=== PATIENT | male | born 1985 | race Caucasian/White ===

== ENCOUNTER 2017-02-08 20:18 | Emergency (ER) | payer OTHER ==
--- NOTE | 2017-02-08 21:02 | ED CLINICAL REPORT ---
Clinical Report - Physicians/Mid Levels [facility] [address] [place] [address] 02/08/2017 20:19 Patient: MAILE GUNN Time Seen: 21:43 Edison 2016. Arrived- By private vehicle. Historian- patient. HISTORY OF PRESENT ILLNESS Chief Complaint: BACK PAIN. It is described as being mild and in the area of the lower lumbar spine. The quality is noted to be "pain". Onset was just prior to arrival and it is still present. No bladder dysfunction or bowel dysfunction. Additional history - patient was using a hand pump, to inflate a floating device, and a flex tobacco position, when he attempted to stand up, patient developed low back pain, with now with pain radiating to his bilateral lower extremities, into his side. Patient denies any urgency or frequency. Patient notes the possibility of an injury. REVIEW OF SYSTEMS No fever, eye irritation, difficulty with urination, hematuria or sore throat. No nausea or diarrhea. All systems otherwise negative, except as recorded above. SOCIAL HISTORY Never smoker. Alcohol use. No drug use. ADDITIONAL NOTES The nursing notes have been reviewed. PHYSICAL EXAM Vital Signs: 02/08/2017 20:31 BP: 133/86. HR: 75. RR: 15. O2 saturation: 96%. Temp: 97.7 F. Pain level now: 9/10. Appearance: Alert. CVS: Heart sounds normal. Pulses normal. Respiratory: No respiratory distress. Abdomen: No visible injury. Soft. Bowel sounds normal. No abdominal tenderness. Back: Soft tissue tenderness. Neuro: Oriented X 3. Mood/affect normal. No motor deficit. No sensory deficit. No sensory deficit. Straight leg raising: negative on the right. Reflex exam: right patellar 3+ and left patellar 3+. Normal gait. PROGRESS AND PROCEDURES Course of Care: There are no risks for spinal epidural abscess or hematoma as patient is without any risk factors such as IVDA or evidence of active infection, no midline tenderness to percussion. Hence I do not feel emergent imaging with an MRI is indicated. However I did discuss with the patient that if these symptoms develop, or if the pain does not resolve an MRI may need to be done outpatient, or in the ED if symptoms worsen acutely or new onset of the above mentioned symptoms develop. Patient is stable. Symptoms better. Patient/family counseled. Differential Diagnosis: I considered Musculo-skeletal strain, contusion, retroperitoneal hematoma, disk protrusion, vertebral fracture, transverse-process fracture, rib fracture, facet syndrome, sacroiliac joint strain, sciatica, renal injury, splenic injury, pancreatic injury and osteoarthritis as a possible cause of back pain in this patient. This is a partial list of diagnoses considered. Disposition: Discharged. CLINICAL IMPRESSION Acute lumbar strain. INSTRUCTIONS Apply ice. Limit lifting. Do not work for four days. Prescription Medications: Soma 350 mg: Take 1 orally every 6 hours as needed for muscle spasm. Dispense twenty (20). No refills. Substitution is permissible. Percocet 5 mg/325 mg: take 1 tablet orally every 6 hours as needed for pain. Dispense twelve (12). No refill. Substitution is permissible. OTC Medications: Motrin IB 200 mg (available over the counter): take 4 orally every 8 hours as needed for pain Follow-up: Follow up with your doctor in four days. (Electronically signed by Kusum Bo P.A.-C 02/08/2017 21:44)
--- NOTE | 2017-02-08 21:02 | ED NURSING NOTES ---
Clinical Report - Nurses [facility] [address] [place] [address] 02/08/2017 20:19 Patient: MAILE GUNN TRIAGE Triage time 22:30. Acuity: LEVEL 4. Chief Complaint: BACK PAIN. 20:37 02/08/17. Alert. No acute distress. MILIND COMA SCORE: Milind Coma Scale: 15- eyes open spontaneously (4); best verbal response- oriented x 4 (5); best motor response- obeys commands (6). --20:37 Yolanda Grant R.N. 20:31 02/08/17. BP: 133/86. HR: 75. RR: 15. O2 saturation: 96%. Temp: 97.7 F. Pain level now: 04/26. --20:37 Yolanda Grant R.N. Weight: 120.2 kg stated. Height/Length: 77 inches Per Patient. BMI: 31.4. --20:35 Yolanda Grant R.N. Medications None. --20:34 Yolanda Grant R.N. Allergies Penicillin. --20:34 Yolanda Grant R.N. Hydrocodone. Moderate(itching, nausea, rash) PCN. --20:34 Yolanda Grant R.N. Amoxicillin. --20:34 Yolanda Grant R.N. History Arrived by private vehicle. Historian: patient. Accompanied by family. Primary physician (No PCP). This started today. ( Patient reports he was pumping up a paddle board and developed stabbing, shooting pain "in my back and into my hips".). He has had numbness, weakness, tingling, and extremity pain. History of recent trauma- (bending over using a pump). ( Patient states the pain shoots down his leg.). 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 PAST MEDICAL HX: Tetanus status: unknown. Immunizations: up-to-date. SOCIAL HX: Never smoker. Occasional alcohol use. No drug use. FALL RISK ASSESSMENT: Fall risk assessment completed. No fall risk identified. NUTRITIONAL RISK ASSESSMENT: The nutritional risk assessment revealed no deficiencies. FUNCTIONAL ASSESSMENT: Functional assessment: no impairments noted. LEARNING NEEDS ASSESSMENT: The learning needs assessment revealed no barriers. SKIN INTEGRITY ASSESSMENT: Skin integrity risk assessment completed. No skin integrity risk identified. --20:37 Yolanda Grant R.N. PROBLEMS: Hydrocele. Dysuria. Flank Pain. Elevated liver enzymes. Abnormal Test. Dysphagia. Abdominal Pain. Contact Dermatitis. Contusion. Sprain. Acute Pain. --20:34 Yolanda Grant R.N. ADDITIONAL SURGERIES: Left elbow. --20:34 Yolanda Grant R.N. Interventions ID band on patient. To treatment room. --20:37 Yolanda Grant R.N. PHYSICAL ASSESSMENT 20:39 02/08/17. Ambulatory to room. GENERAL / NEURO / PSYCH: Alert. Oriented X 4. Appears in pain. (while walking). RESPIRATORY: Respirations not labored. CVS: Capillary refill less than 2 seconds. GI / : Abdomen soft and nontender. EXTREMITIES: Sensation intact in extremities. ROM of extremities within normal limits. BACK: Limited ROM of the back (due to pain.). ROM of neck and back within normal limits. --20:39 Yolanda Grant R.N. NURSING PROGRESS NOTES 20:39 02/08/17. Two patient identifiers checked. Call light placed in reach. Bed placed in lowest position. Brakes of bed on. Patient ready for evaluation- chart flagged and notification provided. --20:39 Yolanda Grant R.N. 21:02/08/2017 Valium (Diazepam) PO Tablets 2.5 mg given. Allergies verified, confirmed 5 rights and sedative warning given to the patient. --21:27 Yolanda Grant R.N. 21:27 02/08/2017 Percocet (Oxycodone-Acetaminophen) PO 5/325 mg Tablets 1 tab given. Allergies verified, confirmed 5 rights and sedative warning given to the patient. --21:27 Yolanda Grant R.N. DISPOSITION / DISCHARGE 21:31. No learning barriers present. Discharge instructions provided and reviewed with the patient and spouse. Reviewed warnings. Reviewed medication(s). Treatments reviewed. Reviewed referrals. Activity restrictions reviewed. Work note given. Patient and spouse verbalized understanding. Written instructions provided in Icelandic. The patient was discharged home and accompanied by spouse. He left the Emergency Department ambulatory and via private vehicle. Spouse driving. --21:33 Yolanda Grant R.N. 20:31 02/08/17. BP: 133/86. HR: 75. RR: 15. O2 saturation: 96%. Temp: 97.7 F. Pain level now: 04/26. --21:33 Yolanda Grant R.N. Locked/Released at 02/08/2017 23:59 by Yolanda Grant R.N.
--- NOTE | 2017-02-08 21:02 | ED NURSING NOTES ---
Clinical Report - Nurses [facility] [address] [place] [address] 02/08/2017 20:19 Patient: MAILE GUNN TRIAGE Triage time 22:30. Acuity: LEVEL 4. Chief Complaint: BACK PAIN. 20:37 02/08/17. Alert. No acute distress. MILIND COMA SCORE: Milind Coma Scale: 15- eyes open spontaneously (4); best verbal response- oriented x 4 (5); best motor response- obeys commands (6). --20:37 Yolanda Grant R.N. 20:31 02/08/17. BP: 133/86. HR: 75. RR: 15. O2 saturation: 96%. Temp: 97.7 F. Pain level now: 04/26. --20:37 Yolanda Grant R.N. Weight: 120.2 kg stated. Height/Length: 77 inches Per Patient. BMI: 31.4. --20:35 Yolanda Grant R.N. Medications None. --20:34 Yolanda Grant R.N. Allergies Penicillin. --20:34 Yolanda Grant R.N. Hydrocodone. Moderate(itching, nausea, rash) PCN. --20:34 Yolanda Grant R.N. Amoxicillin. --20:34 Yolanda Grant R.N. History Arrived by private vehicle. Historian: patient. Accompanied by family. Primary physician (No PCP). This started today. ( Patient reports he was pumping up a paddle board and developed stabbing, shooting pain "in my back and into my hips".). He has had numbness, weakness, tingling, and extremity pain. History of recent trauma- (bending over using a pump). ( Patient states the pain shoots down his leg.). 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 PAST MEDICAL HX: Tetanus status: unknown. Immunizations: up-to-date. SOCIAL HX: Never smoker. Occasional alcohol use. No drug use. FALL RISK ASSESSMENT: Fall risk assessment completed. No fall risk identified. NUTRITIONAL RISK ASSESSMENT: The nutritional risk assessment revealed no deficiencies. FUNCTIONAL ASSESSMENT: Functional assessment: no impairments noted. LEARNING NEEDS ASSESSMENT: The learning needs assessment revealed no barriers. SKIN INTEGRITY ASSESSMENT: Skin integrity risk assessment completed. No skin integrity risk identified. --20:37 Yolanda Grant R.N. PROBLEMS: Hydrocele. Dysuria. Flank Pain. Elevated liver enzymes. Abnormal Test. Dysphagia. Abdominal Pain. Contact Dermatitis. Contusion. Sprain. Acute Pain. --20:34 Yolanda Grant R.N. ADDITIONAL SURGERIES: Left elbow. --20:34 Yolanda Grant R.N. Interventions ID band on patient. To treatment room. --20:37 Yolanda Grant R.N. PHYSICAL ASSESSMENT 20:39 02/08/17. Ambulatory to room. GENERAL / NEURO / PSYCH: Alert. Oriented X 4. Appears in pain. (while walking). RESPIRATORY: Respirations not labored. CVS: Capillary refill less than 2 seconds. GI / : Abdomen soft and nontender. EXTREMITIES: Sensation intact in extremities. ROM of extremities within normal limits. BACK: Limited ROM of the back (due to pain.). ROM of neck and back within normal limits. --20:39 Yolanda Grant R.N. NURSING PROGRESS NOTES 20:39 02/08/17. Two patient identifiers checked. Call light placed in reach. Bed placed in lowest position. Brakes of bed on. Patient ready for evaluation- chart flagged and notification provided. --20:39 Yolanda Grant R.N. 21:02/08/2017 Valium (Diazepam) PO Tablets 2.5 mg given. Allergies verified, confirmed 5 rights and sedative warning given to the patient. --21:27 Yolanda Grant R.N. 21:27 02/08/2017 Percocet (Oxycodone-Acetaminophen) PO 5/325 mg Tablets 1 tab given. Allergies verified, confirmed 5 rights and sedative warning given to the patient. --21:27 Yolanda Grant R.N. DISPOSITION / DISCHARGE 21:31. No learning barriers present. Discharge instructions provided and reviewed with the patient and spouse. Reviewed warnings. Reviewed medication(s). Treatments reviewed. Reviewed referrals. Activity restrictions reviewed. Work note given. Patient and spouse verbalized understanding. Written instructions provided in Bulgarian. The patient was discharged home and accompanied by spouse. He left the Emergency Department ambulatory and via private vehicle. Spouse driving. --21:33 Yolanda Grant R.N. 20:31 02/08/17. BP: 133/86. HR: 75. RR: 15. O2 saturation: 96%. Temp: 97.7 F. Pain level now: 04/26. --21:33 Yolanda Grant R.N. Locked/Released at 02/08/2017 23:59 by Yolanda Grant R.N.
--- NOTE | 2017-02-08 21:02 | ED ORDER SUMMARY ---
..... Patient: MAILE GUNN OrderSheet [facility] VisitID: [id number] [place] [address] 31y, M Registration Date/Time: 02/08/2017 ORDER SHEET Weight: 120.2 kg (stated) Allergies: Penicillin, Hydrocodone, PCN, Amoxicillin GENERAL ORDERS: MEDICATION ORDERS: Valium PO 2.5 mg (HIGH ALERT MEDICATION, NOW) (20:51 02/08/2017 Shady Pappas) (Ack 20:56 RMarsden R.N.) (21:27 RMarsden R.N.) Percocet PO 5/325 mg (HIGH ALERT MEDICATION, NOW) (20:51 02/08/2017 Shady Pappas) (Ack 20:56 RMarsden R.N.) (21:27 RMarsden R.N.) IV FLUIDS: ORDER SHEET NOTES: [Electronically signed by Kusum Bo P.A.-C (21:44 02/08/2017)] [Electronically signed by Yolanda Grant R.N. (23:59 02/08/2017)] [Electronically locked/signed by Yolanda Grant R.N. (23:59 02/08/2017)]
--- NOTE | 2017-02-08 21:02 | ED ORDER SUMMARY ---
..... Patient: MAILE GUNN OrderSheet [facility] VisitID: [id number] [place] [address] 31y, M Registration Date/Time: 02/08/2017 ORDER SHEET Weight: 120.2 kg (stated) Allergies: Penicillin, Hydrocodone, PCN, Amoxicillin GENERAL ORDERS: MEDICATION ORDERS: Valium PO 2.5 mg (HIGH ALERT MEDICATION, NOW) (20:51 02/08/2017 Shady Pappas) (Ack 20:56 RMarsden R.N.) (21:27 RMarsden R.N.) Percocet PO 5/325 mg (HIGH ALERT MEDICATION, NOW) (20:51 02/08/2017 Shady Pappas) (Ack 20:56 RMarsden R.N.) (21:27 RMarsden R.N.) IV FLUIDS: ORDER SHEET NOTES: [Electronically signed by Kusum Bo P.A.-C (21:44 02/08/2017)] [Electronically signed by Yolanda Grant R.N. (23:59 02/08/2017)] [Electronically locked/signed by Yolanda Grant R.N. (23:59 02/08/2017)]
--- NOTE | 2017-02-09 | ED DISCHARGE INSTRUCTIONS ---
Patient: MAILE GUNN General Instructions [facility] VisitID: [id number] [place] [address] 31y, M Registration Date/Time: 02/08/2017 Acute lumbar strain. INSTRUCTIONS Apply ice. Limit lifting. Do not work for four days. Prescription Medications: Soma 350 mg: Take 1 orally every 6 hours as needed for muscle spasm. Dispense twenty (20). No refills. Substitution is permissible. Percocet 5 mg/325 mg: take 1 tablet orally every 6 hours as needed for pain. Dispense twelve (12). No refill. Substitution is permissible. OTC Medications: Motrin IB 200 mg (available over the counter): take 4 orally every 8 hours as needed for pain Follow-up: Follow up with your doctor in four days. ADDITIONAL INFORMATION Sciatica Sciatica ("Lumbar Radiculopathy") causes a pain that spreads from the lower back down into the buttock, hip and leg. Sometimes leg pain can occur without any back pain. Sciatica is due to irritation or pressure on a spinal nerve as it comes out of the spinal canal. This is most often due to a bulge or rupture of a nearby spinal disk (the cartilage cushion between each spinal bone), which presses on a nearby nerve. Other causes include spinal stenosis (narrowing of the spinal canal) and spasm of the pyriform muscle (a muscle in the buttocks that the sciatic nerve passes through). Sciatica may begin after a sudden twisting/bending force (such as in a car accident), or sometimes after a simple awkward movement. In either case, muscle spasm is commonly present and contributes to the pain. The diagnosis of sciatica is made from the symptoms and physical exam. Unless you had a physical injury (such as a car accident or fall), X-rays are usually not ordered for the initial evaluation of sciatica because the nerves and disks cannot be seen on an x-ray. If signs of a compressed nerve are present (for example, loss of tendon reflex or strength in the leg), an MRI (magnetic resonance imaging) scan will need to be scheduled as an outpatient. Most sciatica (80-90%) gets better with medicine, exercise, physical therapy. If symptoms continue after at least three months of medical treatment, surgery may be considered. Home Care: You may need to stay in bed the first few days. But, as soon as possible, begin sitting or walking to avoid problems with prolonged bed rest. When in bed, try to find a position of comfort. A firm mattress is best. Try lying flat on your back with pillows under your knees. You can also try lying on your side with your knees bent up towards your chest and a pillow between your knees. Avoid prolonged sitting. This puts more stress on the lower back than standing or walking. Some persons find relief with heat (hot shower, hot bath or heating pad) and massage, while others prefer cold packs (crushed or cubed ice in a plastic bag, wrapped in a towel). Try both and use the method that feels best for 20 minutes several times a day. You may use acetaminophen (Tylenol) or ibuprofen (Motrin, Advil) to control pain, unless another pain medicine was prescribed. [ NOTE: If you have chronic liver or kidney disease or ever had a stomach ulcer or GI bleeding, talk with your doctor before using these medicines.] Be aware of safe lifting methods and do not lift anything over 15 pounds until all the pain is gone. Follow Up with your doctor or this facility if your symptoms do not start to improve after one week. Physical therapy or further testing may be needed. [NOTE: If X-rays were taken, they will be reviewed by a radiologist. You will be notified of any new findings that may affect your care.] Get Prompt Medical Attention if any of the following occur: Pain becomes worse, not controlled by the prescribed medicine Weakness or numbness in one or both legs Numbness in the groin, genital area Loss of bowel or bladder control Oxycodone Hydrochloride, Acetaminophen Oral tablet What is this medicine? ACETAMINOPHEN; OXYCODONE (a set a JAYSHREE samaria fen; ox i KOE done) is a pain reliever. It is used to treat mild to moderate pain. How should I use this medicine? Take this medicine by mouth with a full glass of water. Follow the directions on the prescription label. Take your medicine at regular intervals. Do not take your medicine more often than directed. Talk to your insurance executive regarding the use of this medicine in children. Special care may be needed. Patients over 65 years old may have a stronger reaction and need a smaller dose. What side effects may I notice from receiving this medicine? Side effects that you should report to your doctor or health career center advisor as soon as possible: allergic reactions like skin rash, itching or hives, swelling of the face, lips, or tongue breathing difficulties, wheezing confusion light headedness or fainting spells severe stomach pain yellowing of the skin or the whites of the eyes Side effects that usually do not require medical attention (report to your doctor or health career center advisor if they continue or are bothersome): dizziness drowsiness nausea vomiting What may interact with this medicine? alcohol antihistamines barbiturates like amobarbital, butalbital, butabarbital, methohexital, pentobarbital, phenobarbital, thiopental, and secobarbital benztropine drugs for bladder problems like solifenacin, trospium, oxybutynin, tolterodine, hyoscyamine, and methscopolamine drugs for breathing problems like ipratropium and tiotropium drugs for certain stomach or intestine problems like propantheline, homatropine methylbromide, glycopyrrolate, atropine, belladonna, and dicyclomine general anesthetics like etomidate, ketamine, nitrous oxide, propofol, desflurane, enflurane, halothane, isoflurane, and sevoflurane medicines for depression, anxiety, or psychotic disturbances medicines for sleep muscle relaxants naltrexone narcotic medicines (opiates) for pain phenothiazines like perphenazine, thioridazine, chlorpromazine, mesoridazine, fluphenazine, prochlorperazine, promazine, and trifluoperazine scopolamine tramadol trihexyphenidyl What if I miss a dose? If you miss a dose, take it as soon as you can. If it is almost time for your next dose, take only that dose. Do not take double or extra doses. Where should I keep my medicine? Keep out of the reach of children. This medicine can be abused. Keep your medicine in a safe place to protect it from theft. Do not share this medicine with anyone. Selling or giving away this medicine is dangerous and against the law. Store at room temperature between 20 and 25 degrees C (68 and 77 degrees F). Keep container tightly closed. Protect from light. This medicine may cause accidental overdose and if it is taken by other adults, children, or pets. Flush any unused medicine down the toilet to reduce the chance of harm. Do not use the medicine after the expiration date. What should I tell my health care provider before I take this medicine? They need to know if you have any of these conditions: brain tumor Crohn's disease, inflammatory bowel disease, or ulcerative colitis drink more than 3 alcohol containing drinks per day drug abuse or addiction head injury heart or circulation problems kidney disease or problems going to the bathroom liver disease lung disease, asthma, or breathing problems an unusual or allergic reaction to acetaminophen, oxycodone, other opioid analgesics, other medicines, foods, dyes, or preservatives or trying to get breast-feeding What should I watch for while using this medicine? Tell your doctor or health career center advisor if your pain does not go away, if it gets worse, or if you have new or a different type of pain. You may develop tolerance to the medicine. Tolerance means that you will need a higher dose of the medication for pain relief. Tolerance is normal and is expected if you take this medicine for a long time. Do not suddenly stop taking your medicine because you may develop a severe reaction. Your body becomes used to the medicine. This does NOT mean you are addicted. Addiction is a behavior related to getting and using a drug for a non-medical reason. If you have pain, you have a medical reason to take pain medicine. Your doctor will tell you how much medicine to take. If your doctor wants you to stop the medicine, the dose will be slowly lowered over time to avoid any side effects. You may get drowsy or dizzy. Do not drive, use machinery, or do anything that needs mental alertness until you know how this medicine affects you. Do not stand or sit up quickly, especially if you are an older patient. This reduces the risk of dizzy or fainting spells. Alcohol may interfere with the effect of this medicine. Avoid alcoholic drinks. There are different types of narcotic medicines (opiates) for pain. If you take more than one type at the same time, you may have more side effects. Give your health care provider a list of all medicines you use. Your doctor will tell you how much medicine to take. Do not take more medicine than directed. Call emergency for help if you have problems breathing. The medicine will cause constipation. Try to have a bowel movement at least every 2 to 3 days. If you do not have a bowel movement for 3 days, call your doctor or health career center advisor. Do not take Tylenol (acetaminophen) or medicines that have acetaminophen with this medicine. Too much acetaminophen can be very dangerous. Many nonprescription medicines contain acetaminophen. Always read the labels carefully to avoid taking more acetaminophen. Ibuprofen Oral tablet What is this medicine? IBUPROFEN (eye BYOO proe fen) is a non-steroidal anti-inflammatory drug (NSAID). It is used for dental pain, fever, headaches or migraines, osteoarthritis, rheumatoid arthritis, or painful monthly periods. It can also relieve minor aches and pains caused by a cold, flu, or sore throat. How should I use this medicine? Take this medicine by mouth with a glass of water. Follow the directions on the prescription label. Take this medicine with food if your stomach gets upset. Try to not lie down for at least 10 minutes after you take the medicine. Take your medicine at regular intervals. Do not take your medicine more often than directed. A special MedGuide will be given to you by the pharmacist with each prescription and refill. Be sure to read this information carefully each time. Talk to your insurance executive regarding the use of this medicine in children. Special care may be needed. What side effects may I notice from receiving this medicine? Side effects that you should report to your doctor or health career center advisor as soon as possible: allergic reactions like skin rash, itching or hives, swelling of the face, lips, or tongue black or bloody stools, blood in the urine or in vomit breathing problems changes in vision chest pain general ill feeling or flu-like symptoms nausea or vomiting redness, blistering, peeling or loosening of the skin, including inside the mouth slurred speech or weakness on one side of the body stomach pain unexplained weight gain or swelling unusually weak or tired yellowing of eyes or skin Side effects that usually do not require medical attention (report to your doctor or health career center advisor if they continue or are bothersome): constipation or diarrhea dizziness gas or heartburn stomach upset What may interact with this medicine? Do not take this medicine with any of the following medications: cidofovir ketorolac methotrexate pemetrexed This medicine may also interact with the following medications: alcohol aspirin diuretics lithium other drugs for inflammation like prednisone warfarin What if I miss a dose? If you miss a dose, take it as soon as you can. If it is almost time for your next dose, take only that dose. Do not take double or extra doses. Where should I keep my medicine? Keep out of the reach of children. Store at room temperature between 15 and 30 degrees C (59 and 86 degrees F). Keep container tightly closed. Throw away any unused medicine after the expiration date. What should I tell my health care provider before I take this medicine? They need to know if you have any of these conditions: asthma cigarette smoker drink more than 3 alcohol containing drinks a day heart disease or circulation problems such as heart failure or leg edema (fluid retention) high blood pressure kidney disease liver disease stomach bleeding or ulcers an unusual or allergic reaction to ibuprofen, aspirin, other NSAIDS, other medicines, foods, dyes, or preservatives or trying to get breast-feeding What should I watch for while using this medicine? Tell your doctor or healthcare professional if your symptoms do not start to get better or if they get worse. This medicine does not prevent heart attack or stroke. In fact, this medicine may increase the chance of a heart attack or stroke. The chance may increase with longer use of this medicine and in people who have heart disease. If you take aspirin to prevent heart attack or stroke, talk with your doctor or health career center advisor. Do not take other medicines that contain aspirin, ibuprofen, or naproxen with this medicine. Side effects such as stomach upset, nausea, or ulcers may be more likely to occur. Many medicines available without a prescription should not be taken with this medicine. This medicine can cause ulcers and bleeding in the stomach and intestines at any time during treatment. Ulcers and bleeding can happen without warning symptoms and can cause . To reduce your risk, do not smoke cigarettes or drink alcohol while you are taking this medicine. You may get drowsy or dizzy. Do not drive, use machinery, or do anything that needs mental alertness until you know how this medicine affects you. Do not stand or sit up quickly, especially if you are an older patient. This reduces the risk of dizzy or fainting spells. This medicine can cause you to bleed more easily. Try to avoid damage to your teeth and gums when you brush or floss your teeth. You have been given the following additional information: Back Pain W/ Sciatica Oxycodone Hydrochloride, Acetaminophen Oral tablet Ibuprofen Oral tablet Limit lifting. Do not work for four days. (Electronically signed by Kusum Bo P.A.-C 02/08/2017 21:44)
--- NOTE | 2017-02-09 00:01 | ED MED RECONCILIATION SUMMARY ---
Patient: MAILE GUNN Medication Reconciliation Report [facility] VisitID: [id number] [place] [address] 31y, M Registration Date/Time: 02/08/2017 Weight: 120.2 kg Height/Length: 77 in. BMI: 31.4 ALLERGIES: Amoxicillin, Hydrocodone, PCN, Penicillin The patient's Home Medications are listed below: NONE. The source(s) of the original Home Medication information: Not obtained. The following Medications were given to the patient in the Emergency Department: Valium [PO] PO 2.5 mg, administered: 02/08/2017 9:27:00 PM Percocet [PO] PO 1 tab, administered: 02/08/2017 9:27:00 PM The following Medications were prescribed to the patient: Motrin IB 200 mg (available over the counter): take 4 orally every 8 hours as needed for pain -- Betzy, Kusum, P.A.-C Soma 350 mg: Take 1 orally every 6 hours as needed for muscle spasm. Dispense twenty (20). No refills. Substitution is permissible. -- DarrianoleKusum clements, P.A.-C Percocet 5 mg/325 mg: take 1 tablet orally every 6 hours as needed for pain. Dispense twelve (12). No refill. Substitution is permissible. -- Kusum Bo, P.A.-C
--- NOTE | 2017-02-09 00:01 | ED MAR SUMMARY ---
..... Medication Administration Record [facility] [address] [place] [address] Patient: MAILE GUNN Visit ID: [id number] 31y, M Weight: 120.2 kg Height/Length: 77 in BMI: 31.4 ALLERGIES: Amoxicillin, Hydrocodone, PCN, Penicillin Given 21:02/08/2017 Yolanda Grant, R.N. Medication Administered: VALIUM [PO] (DIAZEPAM), Dose: 2.5 mg Tablets PO. Medication Ordered: Valium PO 2.5 mg (HIGH ALERT MEDICATION, NOW). Given 21:02/08/2017 Yolanda Grant, R.N. Medication Administered: PERCOCET [PO] (OXYCODONE-ACETAMINOPHEN), Dose: 1 tab 5/325 mg Tablets PO. Medication Ordered: Percocet PO 5/325 mg (HIGH ALERT MEDICATION, NOW).
--- NOTE | 2017-02-09 00:01 | ED MAR SUMMARY ---
..... Medication Administration Record [facility] [address] [place] [address] Patient: MAILE GUNN Visit ID: [id number] 31y, M Weight: 120.2 kg Height/Length: 77 in BMI: 31.4 ALLERGIES: Amoxicillin, Hydrocodone, PCN, Penicillin Given 21:02/08/2017 Yolanda Grant, R.N. Medication Administered: VALIUM [PO] (DIAZEPAM), Dose: 2.5 mg Tablets PO. Medication Ordered: Valium PO 2.5 mg (HIGH ALERT MEDICATION, NOW). Given 21:02/08/2017 Yolanda Grant, R.N. Medication Administered: PERCOCET [PO] (OXYCODONE-ACETAMINOPHEN), Dose: 1 tab 5/325 mg Tablets PO. Medication Ordered: Percocet PO 5/325 mg (HIGH ALERT MEDICATION, NOW).
--- NOTE | 2017-02-09 00:01 | ED MED RECONCILIATION SUMMARY ---
Patient: MAILE GUNN Medication Reconciliation Report [facility] VisitID: [id number] [place] [address] 31y, M Registration Date/Time: 02/08/2017 Weight: 120.2 kg Height/Length: 77 in. BMI: 31.4 ALLERGIES: Amoxicillin, Hydrocodone, PCN, Penicillin The patient's Home Medications are listed below: NONE. The source(s) of the original Home Medication information: Not obtained. The following Medications were given to the patient in the Emergency Department: Valium [PO] PO 2.5 mg, administered: 02/08/2017 9:27:00 PM Percocet [PO] PO 1 tab, administered: 02/08/2017 9:27:00 PM The following Medications were prescribed to the patient: Motrin IB 200 mg (available over the counter): take 4 orally every 8 hours as needed for pain -- Betzy, Kusum, P.A.-C Soma 350 mg: Take 1 orally every 6 hours as needed for muscle spasm. Dispense twenty (20). No refills. Substitution is permissible. -- DarrianoleKusum clements, P.A.-C Percocet 5 mg/325 mg: take 1 tablet orally every 6 hours as needed for pain. Dispense twelve (12). No refill. Substitution is permissible. -- Kusum Bo, P.A.-C
== END 2017-02-08 21:31 | disposition home or self-care (01) ==
LOC: ED SRH 20:18
DX: S39.012A Strain of muscle, fascia and tendon of lower back, initial encounter (principal); X50.3XXA Overexertion from repetitive movements, initial encounter; Y93.89 Activity, other specified; Y99.9 Unspecified external cause status; Y92.9 Unspecified place or not applicable